=== PATIENT | male | born 1940 | race Caucasian/White ===

== ENCOUNTER 2018-04-25 12:48 | Emergency (ER) | payer OTHER ==
[~2018-04-25] VITALS: Ht 172.7 cm; Wt 76.2 kg
[2018-04-25] MEDS ORDERED: IV NS 0.9% 1,000 ML BAG IV ONE ×2 (13:00→13:30)
[2018-04-25 13:03] LABS: BASOPHILS % (AUTO) 0.1 % (0.0-2.0); EOSINOPHILS % (AUTO) 0.1 % (0.0-6.0); HEMATOCRIT 37 % (39-51); HEMOGLOBIN 12.5 g/dL (13.5-17.5); LYMPHOCYTES # (AUTO) 0.4 /CMM (0.8-4.8); LYMPHOCYTES % (AUTO) 4.7 % (20.0-44.0); MEAN CORPUSCULAR HGB CONC 34 g/dl (31.0-36.0); MEAN CORPUSCULAR VOLUME 101 fL (80-96); MONOCYTES # (AUTO) 0.2 /CMM (0.1-1.30); MONOCYTES % (AUTO) 2.7 % (2.0-12.0); NEUTROPHILS # (AUTO) 8.1 /CMM (1.8-8.9); NEUTROPHILS % (AUTO) 92.4 % (43.0-81.0); PLATELET COUNT (AUTO) 142 /CMM (150-450); RED BLOOD CELL COUNT(AUTO) 3.63 MIL/uL (4.5-6.0); WHITE BLOOD COUNT (AUTO) 8.8 K/uL (4.3-11.0)
--- NOTE | 2018-04-25 13:05 | NUR ---
PT BBRA 87 FROM HOME FOUND SITTING DOWN C/O OF WEAKNESS LIP LAC FROM FALL THIS AM, DENIES LOC OR ANY OTHER INJURY. ALERT AND ORIENTED X 3, VERBALLY RESPONSIVE AND ABLE TO MAKE NEEDS KNOWN. ON ROOM AIR, BREATHING EVENLY AND UNLABORED. DENIES ANY PAIN AT THIS TIME, HOOKED ON THE MONITOR, GOWN. DR. STEPHEN AT BEDSIDE FOR EVAL. KEPT COMFORTABLE, WILL CONTINUE TO MONITOR ACCORDINGLY.
[2018-04-25 13:14] LABS: CALCIUM, SERUM 8.5 mg/dL (8.5-10.1); CARBON DIOXIDE 20 mmol/L (21-32); CHLORIDE 97 mmol/L (98-107); CREATININE 1.5 mg/dL (0.6-1.3); GLUCOSE 144 mg/dL (74-106); POTASSIUM 3.9 mmol/L (3.5-5.1); SODIUM SERUM 131 mmol/L (136-145); UREA NITROGEN, BLOOD 21 mg/dL (7-18)
--- NOTE | 2018-04-25 13:17 | NUR ---
PT GOING TO RADIOLOGY FOR CT SCAN.
[2018-04-25 13:20] LABS: ALANINE AMINOTRANSFERASE 39 U/L (12-78); ALBUMIN 3.3 g/dL (3.4-5.0); ALKALINE PHOSPHATASE 58 U/L (46-116); ASPARTATE AMINOTRANSFERASE 48 U/L (15-37); BILIRUBIN,DIRECT 0.4 mg/dL (0.0-0.2); TOTAL PROTEIN, SERUM 7.6 g/dL (6.4-8.2)
--- NOTE | 2018-04-25 13:22 | NUR ---
CAME BACK FROM X-RAY
[2018-04-25] MEDS ORDERED: CEFEPIME 1 GM in IV D5W 50 ML IV ONE (13:30)
[2018-04-25] MEDS ORDERED: VANCOMYCIN 1 GM in IV D5W 250 ML IV ONE (13:30)
[2018-04-25] MEDS ORDERED: ASPIRIN 81 MG TAB.CHEW PO ONE (13:30)
[2018-04-25 13:39] LABS: LIPASE 78 U/L (73-393)
[2018-04-25] MEDS ORDERED: ASPIRIN 81 MG TAB.CHEW ONE (13:44)
[2018-04-25 13:47] LABS: CREATINE KINASE, TOTAL 913 U/L (39-308)
--- NOTE | 2018-04-25 14:04 | NUR ---
Called [facility] for MD to MD call back.
[2018-04-25 14:46] LABS: APPEARANCE,URINE SL CLOUDY (CLEAR); BILIRUBIN,URINE NEGATIVE (NEGATIVE); BLOOD, URINE 3+ Ery/uL (NEGATIVE); COLOR,URINE YELLOW (YELLOW); KETONES,URINE NEGATIVE (NEGATIVE); LEUKOCYTE ESTERASE ,URINE NEGATIVE (NEGATIVE); NITRITE, URINE NEGATIVE (NEGATIVE); PH,URINE 5.5 (5.0-8.0); PROTEIN,URINE 2+ mg/dl (NEGATIVE); UGLUCOSE NEGATIVE (NEGATIVE); UROBILINOGEN,URINE 0.2 EU/dL (0.2)
[2018-04-25 14:58] LABS: BACTERIA,URINE Rare /HPF (None Seen); SQUAMOUS EPITHELIAL CELL,UR Rare /HPF (None Seen); URINE AMORPHOUS URATE Moderate /HPF (None Seen); WBC,URINE 0-2 /HPF (0-3)
[2018-04-25] MEDS ORDERED: ENOXAPARIN SODIUM 80 MG/0.8 ML DISP.SYRIN SQ ONE ×2 (16:30→16:32)
--- NOTE | 2018-04-25 18:21 | NUR ---
[facility] CALLED PT GOING TO [facility] ROOM CCU 1202 ACCEPTING MD IS DMITRI Sarmiento GIVE REPORT TO [phone] TRANSPORT CCRN WILL BE HERE @ [phone]
--- NOTE | 2018-04-25 18:39 | NUR ---
ATTEMPTED TO GIVE REPORT AT THIS TIME AND RN STATED TOO EARLY TO GIVE REPORT, HRBP TIME IS AT 8PM.
--- NOTE | 2018-04-25 19:14 | NUR ---
ENDORSED TO [facility] FUENTES.
--- NOTE | 2018-04-25 19:15 | NUR ---
RECEIVED REPORT FROM JETT GONZALES FOR FUENTES
--- NOTE | 2018-04-25 20:33 | NUR ---
[facility] ETA CLINICAL PROJECT LEADER UPDATE 8:45 PM.
--- NOTE | 2018-04-25 22:45 | NUR ---
CALLED [facility] MULTIPLE TIMES FOR UPDATE ON [place] CLERK, BUSY LINE
[2018-04-25 22:59] VITALS: BP 128/56
--- NOTE | 2018-04-25 23:48 | NUR ---
PT RESTING COMFORTABLY IN BED. EASILY AROUSABLE. VITAL SIGNS STABLE. MULTIPLE ATTEMPTS TO CALL [facility] FOR UPDATE. BUSY TONE
--- NOTE | 2018-04-26 00:10 | NUR ---
GAVE REPORT TO OMAR MORRISON RN53 FOR TRANSPORTATION AND TO JAZ FROM [place] FOR FUENTES
== END 2018-04-26 00:18 | disposition short-term general hospital (02) ==
LOC: ER 12:51
DX: R65.10 Systemic inflammatory response syndrome (SIRS) of non-infectious origin without acute organ dysfunction (principal); I21.4 Non-ST elevation (NSTEMI) myocardial infarction; S01.511A Laceration without foreign body of lip, initial encounter; R55 Syncope and collapse; E86.0 Dehydration; N28.9 Disorder of kidney and ureter, unspecified; R19.7 Diarrhea, unspecified; E87.2 Acidosis; I24.9 Acute ischemic heart disease, unspecified; Z98.61 Coronary angioplasty status; Z96.659 Presence of unspecified artificial knee joint; Z60.2 Problems related to living alone; W18.39XA Other fall on same level, initial encounter; Y93.89 Activity, other specified; Y92.002 Bathroom of unspecified non-institutional (private) residence as the place of occurrence of the external cause; Y99.8 Other external cause status
CPT/HCPCS: 36415; 70450-TC; 71045-TC; 80048-TC; 80076-TC; 81000-TC; 82550-TC; 82553-TC; 83605-TC; 83690-TC; 84484-TC; 85025-TC; 85730-TC; 87040-TC; 87086-TC; 87400; J0692; J1650; J3370; J7030; J7040; J7060

== ENCOUNTER 2018-07-28 15:17 | Inpatient (IN) | payer OTHER ==
[~2018-07-28] VITALS: Ht 165.1 cm; Wt 68.5 kg
--- NOTE | 2018-07-28 15:30 | NUR ---
PT TO ER BED 6. BIBRA D/T COMPLAINT OF SOB. PT STATES THE HE FEELS WEAK AND COULD GET OUT OF BED EARLIER. COMPLAINT OF ABDOMINAL CRAMPING. PT IS AAOX4. NO ACUTE DISTRESS. AWAITNG MD EVANS. WILL CONTINUE TO MONITOR.
[2018-07-28] MEDS ORDERED: ONDANSETRON HCL/PF 4 MG/2 ML VIAL IVP ONE (16:00)
[2018-07-28] MEDS ORDERED: METRONIDAZOLE 500MG/ NS 100ML 100 ML IV ONE ×2 (16:00→16:04)
[2018-07-28] MEDS ORDERED: PIPERACILLIN /TAZOBACTAM 3.375 G in IV D5W 50 ML IV ONE (16:00)
[2018-07-28] MEDS ORDERED: IV NS 0.9% 1,000 ML BAG IV ONE (16:00)
[2018-07-28] MEDS ORDERED: MORPHINE SULFATE INJ 2 MG/ML DISP.SYRIN IV ONE (16:00)
[2018-07-28] MEDS ORDERED: ONDANSETRON HCL/PF 4 MG/2 ML VIAL ONE (16:04)
--- NOTE | 2018-07-28 16:04 | NUR ---
PT TO RADIOLOGY DEPT VIA [facility]
[2018-07-28] MEDS ORDERED: MORPHINE SULFATE INJ 4 MG/ML DISP.SYRIN ONE (16:05)
--- NOTE | 2018-07-28 16:15 | NUR ---
IV ACCESS OBTAINED ON RFA 20G. LABS DRAWN WITH TECH AT BEDSIDE.
--- NOTE | 2018-07-28 16:15 | NUR ---
PT CAME IN WITH EXISTING IV LINE BY EMS. LFA 20G, PATENT AND INTACT
[2018-07-28 16:30] LABS: BASOPHILS % (AUTO) 0.2 % (0.0-2.0); EOSINOPHILS % (AUTO) 0.1 % (0.0-6.0); HEMATOCRIT 33 % (39-51); HEMOGLOBIN 11.1 g/dL (13.5-17.5); LYMPHOCYTES # (AUTO) 1.1 /CMM (0.8-4.8); LYMPHOCYTES % (AUTO) 13.1 % (20.0-44.0); MEAN CORPUSCULAR HGB CONC 34 g/dl (31.0-36.0); MEAN CORPUSCULAR VOLUME 99 fL (80-96); MONOCYTES # (AUTO) 0.8 /CMM (0.1-1.30); MONOCYTES % (AUTO) 9.6 % (2.0-12.0); NEUTROPHILS # (AUTO) 6.4 /CMM (1.8-8.9); PLATELET COUNT (AUTO) 256 /CMM (150-450); WHITE BLOOD COUNT (AUTO) 8.3 K/uL (4.3-11.0)
[2018-07-28 16:40] LABS: CALCIUM, SERUM 7.8 mg/dL (8.5-10.1); CARBON DIOXIDE 25 mmol/L (21-32); CHLORIDE 94 mmol/L (98-107); CREATININE 1.1 mg/dL (0.6-1.3); GLUCOSE 156 mg/dL (74-106); POTASSIUM 3.6 mmol/L (3.5-5.1); SODIUM SERUM 128 mmol/L (136-145); UREA NITROGEN, BLOOD 17 mg/dL (7-18)
[2018-07-28 16:45] LABS: ALANINE AMINOTRANSFERASE 197 U/L (12-78); ALBUMIN 2.5 g/dL (3.4-5.0); ALKALINE PHOSPHATASE 100 U/L (46-116); ASPARTATE AMINOTRANSFERASE 175 U/L (15-37); BILIRUBIN,DIRECT 0.4 mg/dL (0.0-0.2); TOTAL PROTEIN, SERUM 7.1 g/dL (6.4-8.2)
[2018-07-28] MEDS ORDERED: MELA5TAB PO (17:13)
[2018-07-28] MEDS ORDERED: CARV6.252 PO (17:13)
[2018-07-28] MEDS ORDERED: ATOR40TA PO (17:13)
[2018-07-28] MEDS ORDERED: LOSA25TA27 PO (17:13)
[2018-07-28] MEDS ORDERED: LEVO75TA7 PO (17:13)
[2018-07-28] MEDS ORDERED: NITR0.4T48 SL (17:13)
[2018-07-28] MEDS ORDERED: CLOP75TA15 PO (17:13)
[2018-07-28] MEDS ORDERED: ONDA4TAB5 PO (17:13)
[2018-07-28] MEDS ORDERED: ASPI-1152 PO (17:13)
[2018-07-28] MEDS ORDERED: ACID1TAB12 PO (17:13)
[2018-07-28] MEDS ORDERED: MIRT15TA7 PO (17:13)
[2018-07-28] MEDS ORDERED: ASPIRIN 81 MG TAB.CHEW ONE ×2 (17:24→17:28)
[2018-07-28] MEDS ORDERED: ASPIRIN 81 MG TAB.CHEW PO ONE (17:30)
--- NOTE | 2018-07-28 17:44 | NUR ---
[facility] CALLED,SPOKE WITH GUZMAN GONZALES,WILL HAVE TRACEE OZUNA GIVE US A CALL BACK
[2018-07-28] MEDS ORDERED: MAG HYDROX/AL HYDROX/SIMETH 30 ML UDC PO PRN (19:30)
[2018-07-28] MEDS ORDERED: ACETAMINOPHEN 325 MG TABLET PO PRN (19:30)
[2018-07-28] MEDS ORDERED: ONDANSETRON HCL/PF 4 MG/2 ML VIAL IVP PRN (19:30)
[2018-07-28] MEDS ORDERED: ZOLPIDEM TARTRATE 5 MG TABLET PO PRN (19:30)
[2018-07-28] MEDS ORDERED: Z GUARD REMEDY 2 OZ OINT TP PRN (19:30)
[2018-07-28] MEDS ORDERED: MAGNESIUM HYDROXIDE 30 ML UDC PO PRN (19:30)
[2018-07-28] MEDS ORDERED: MORPHINE SULFATE INJ 2 MG/ML DISP.SYRIN IV PRN (19:30)
[2018-07-28] MEDS ORDERED: ASPIRIN 325 MG TABLET PO ONE (19:53)
--- NOTE | 2018-07-28 20:11 | NUR ---
REPORT GIVEN TO JANET NAJERA.
[2018-07-28 20:25] LABS: B-TYPE NATRIURETIC PEPTIDE 17372 PG/ML (0-125)
[2018-07-28] MEDS ORDERED: ENOXAPARIN SODIUM 40 MG/0.4 ML DISP.SYRIN SQ SCH (21:00)
--- NOTE | 2018-07-28 21:15 | NUR ---
RN MS ADMITTING NOTES RECEIVED PT FROM ER VIA [facility] BECKER ALERT ORIENTED X4, SITTING IN BED, BREATHING EVEN AND UNLABORED ON 2L O2 NC, NO COUGH OR CONGESTION AT THIS TIME, NO COMPLAIN OF PAIN OR DISCOMFORT. HEART MONITOR IN PLACE. IV ACCESS ON THE L FA 20G PATENT AND FLUSHING. ORIENTED TO UNIT PROTOCOL AND CALL LIGHT, BED IN LOWEST LOCKED POSITION, WILL CONTINUE TO MONITOR FREQUENTLY
[2018-07-28] MEDS ORDERED: PIPERACILLIN /TAZOBACTAM 3.375 G VIAL IV ONE (22:33)
[2018-07-28] MEDS: PIPERACILLIN /TAZOBACTAM 3.375 G in IV D5W 100 ML IV SCH (22:35)
[2018-07-28 23:38] VITALS: BP 102/54
--- NOTE | 2018-07-29 00:29 | NUR ---
TROPONIN RESULTS OF 2.769, DR BARNES AWARE, ORDERED 1MG/KG Q12HR FIRST DOSE TO START NOW. PREVIOUSLY ADMINISTERED 40MG @2100, WILL ADMINISTER ADDITIONAL 30MG NOW AND START 70MG DOSE IN AM
[2018-07-29] MEDS ORDERED: ENOXAPARIN SODIUM 30 MG/0.3 ML DISP.SYRIN SQ SCH (00:30)
[2018-07-29 04:35] VITALS: BP 130/64
[2018-07-29] MEDS ORDERED: PIPERACILLIN /TAZOBACTAM 3.375 G VIAL IV ONE (05:20)
[2018-07-29] MEDS: PIPERACILLIN /TAZOBACTAM 3.375 G in IV D5W 100 ML IV SCH ×2 (05:29→14:10)
--- NOTE | 2018-07-29 06:15 | NUR ---
MULTI PURPOSE MACHINE OPERATOR CLOSING NOTES PT REMAINS IN BED, ALERT ORIENTED X4, BREATHING EVEN AND UNLABORED ON 2L O2 NC, NO COUGH OR CONGESTION AT THIS TIME, NO COMPLAIN OF PAIN OR DISCOMFORT. HEART MONITOR IN PLACE. IV ACCESS ON THE L FA 20G PATENT AND FLUSHING. BED IN LOWEST LOCKED POSITION, CALL LIGHT WITHIN REACH AT ALL TIMES, WILL ENDORSE TO DAY SHIFT FOR FUENTES
[2018-07-29 07:04] LABS: BASOPHILS % (AUTO) 0.3 % (0.0-2.0); EOSINOPHILS % (AUTO) 0.1 % (0.0-6.0); HEMATOCRIT 32 % (39-51); LYMPHOCYTES # (AUTO) 1.6 /CMM (0.8-4.8); LYMPHOCYTES % (AUTO) 23.4 % (20.0-44.0); MEAN CORPUSCULAR HGB CONC 35 g/dl (31.0-36.0); MEAN CORPUSCULAR VOLUME 99 fL (80-96); MONOCYTES # (AUTO) 0.7 /CMM (0.1-1.30); MONOCYTES % (AUTO) 10.2 % (2.0-12.0); NEUTROPHILS # (AUTO) 4.5 /CMM (1.8-8.9); PLATELET COUNT (AUTO) 251 /CMM (150-450); WHITE BLOOD COUNT (AUTO) 6.8 K/uL (4.3-11.0)
[2018-07-29 07:29] LABS: ALANINE AMINOTRANSFERASE 151 U/L (12-78); ALBUMIN 2.3 g/dL (3.4-5.0); ALKALINE PHOSPHATASE 79 U/L (46-116); ASPARTATE AMINOTRANSFERASE 115 U/L (15-37); CALCIUM, SERUM 8.2 mg/dL (8.5-10.1); CARBON DIOXIDE 24 mmol/L (21-32); CHLORIDE 98 mmol/L (98-107); CREATININE 0.9 mg/dL (0.6-1.3); GLUCOSE 100 mg/dL (74-106); MAGNESIUM 2.2 mg/dL (1.8-2.4); PHOSPHORUS 3.6 mg/dL (2.5-4.9); POTASSIUM 3.5 mmol/L (3.5-5.1); SODIUM SERUM 133 mmol/L (136-145); TOTAL PROTEIN, SERUM 6.7 g/dL (6.4-8.2); UREA NITROGEN, BLOOD 15 mg/dL (7-18)
[2018-07-29] MEDS ORDERED: LEVOTHYROXINE SODIUM 75 MCG TABLET PO SCH (07:30)
[2018-07-29] MEDS ORDERED: ATORVASTATIN 40 MG TABLET PO SCH (07:30)
[2018-07-29] MEDS ORDERED: PANTOPRAZOLE 40 MG TABLET.DR PO SCH (07:30)
[2018-07-29] MEDS ORDERED: NITROGLYCERIN 0.4 MG/TAB BOTTLE SL PRN (07:30)
[2018-07-29 07:46] LABS: CHOLESTEROL 60 mg/dL (<200); HDL CHOLESTEROL 24 mg/dL (40-60); LDL 35 mg/dL (0-99); TRIGLYCERIDES 40 mg/dL (30-150)
[2018-07-29 08:00] VITALS: BP 136/61
[2018-07-29 08:59] VITALS: BP 136/61
[2018-07-29] MEDS: FUROSEMIDE 40 MG/4 ML VIAL IV SCH ×2 (08:59→11:57)
[2018-07-29] MEDS ORDERED: CARVEDILOL 6.25 MG TABLET PO SCH (09:00)
[2018-07-29] MEDS ORDERED: ENOXAPARIN SODIUM 80 MG/0.8 ML DISP.SYRIN SQ SCH (09:00)
[2018-07-29] MEDS ORDERED: ASPIRIN EC 81 MG TABLET.DR PO SCH (09:00)
[2018-07-29] MEDS ORDERED: CLOPIDOGREL BISULFATE 75 MG TABLET PO SCH (09:00)
[2018-07-29] MEDS ORDERED: ACIDOPHILUS/BULGARICUS 1 EACH TAB.CHEW PO SCH (09:00)
[2018-07-29 09:18] LABS: THYROID STIMULATING HORMONE 4.306 uIU/mL (0.358-3.74)
--- NOTE | 2018-07-29 10:00 | NUR ---
STOOL SAMPLE (C-DIF) SENT TO LAB.
[2018-07-29 10:24] LABS: BILIRUBIN,URINE NEGATIVE (NEGATIVE); BLOOD, URINE TRACE-INTA Ery/uL (NEGATIVE); COLOR,URINE YELLOW (YELLOW); KETONES,URINE TRACE (NEGATIVE); LEUKOCYTE ESTERASE ,URINE NEGATIVE (NEGATIVE); NITRITE, URINE NEGATIVE (NEGATIVE); PH,URINE 5.5 (5.0-8.0); PROTEIN,URINE TRACE mg/dl (NEGATIVE); UGLUCOSE NEGATIVE (NEGATIVE)
[2018-07-29 10:44] LABS: APPEARANCE,URINE SLIGHTLY CLOUDY (CLEAR)
[2018-07-29 10:48] LABS: BACTERIA,URINE Few /HPF (None Seen); RBC,URINE 0-2 /HPF (0-2); SQUAMOUS EPITHELIAL CELL,UR Few /HPF (None Seen); WBC,URINE 0-2 /HPF (0-3)
[2018-07-29 10:49] LABS: URIC ACID CRYSTALS,URINE Few /HPF (None Seen)
--- NOTE | 2018-07-29 10:53 | NUR ---
patients troponin up , 2.948. Dr Tiwari notified and she will contact with Dr. Ortega
[2018-07-29] MEDS ORDERED: PANT40TA2 PO (11:08)
[2018-07-29] MEDS ORDERED: ENOX80DI SQ (11:08)
[2018-07-29] MEDS ORDERED: FURO10VI IV (11:08)
[2018-07-29] MEDS ORDERED: PIPE3.379 IV (11:08)
[2018-07-29] MEDS ORDERED: ALLA266C2 TP (11:08)
[2018-07-29] MEDS ORDERED: VANC1VIA XX (11:08)
[2018-07-29] MEDS ORDERED: ACET325T53 PO (11:08)
[2018-07-29] MEDS ORDERED: Morphine Sulfate Inj IV (11:08)
--- NOTE | 2018-07-29 12:00 | NUR ---
PATIENT NEEDS HIGHER LEVEL OF CARE AND WILL BE TRANSFERRED TO [facility].
--- NOTE | 2018-07-29 16:00 | NUR ---
REPORT CALLED TO JANET BARAHONA FROM [facility]. PATIENT ADM TO ROOM [id number].
--- NOTE | 2018-07-29 17:00 | NUR ---
PATIENT PICKED UP BY AMBULANCE FOR TRANSFER TO [place]. PATIENT A/O X4 . ON ROOM AIR SATURATING WELL, VS ARE STABLE AND WITHIN NORMAL RANGE. PATIENT DENIES CHEST PAIN, SOB AND NOT IN ANY DISTRESS. NURSE FROM [place] ASKED NOT TO REMOVE IV ASSESS. IV LINE INTACT AND PATENT, FLUSHING WELL. SKIN INTACT.D/C INSTRUCTIONS PROVIDED, PATIENT SIGHED ALL PAPERS INCLUDING VALUABLE FORM. ALL PAPERWORK REQUESTED BY [place] [facility] PROVIDED AND SENT WITH THE PATIENT. ID BAND REMOVED.
[2018-07-29] MEDS ORDERED: LOSARTAN POTASSIUM 25 MG TABLET PO SCH (18:00)
[2018-07-29] MEDS ORDERED: MIRTAZAPINE 15 MG TABLET PO SCH (22:00)
== END 2018-07-29 18:19 | DRG 280 ==
LOC: ER 15:23 → TELE 19:44
PROVIDERS: ADMIT Student in an Organized Health Care Education/Training Program; ATTEND Student in an Organized Health Care Education/Training Program
DX: I21.4 Non-ST elevation (NSTEMI) myocardial infarction (principal); I81 Portal vein thrombosis; I50.23 Acute on chronic systolic (congestive) heart failure; K57.32 Diverticulitis of large intestine without perforation or abscess without bleeding; E87.1 Hypo-osmolality and hyponatremia; C18.7 Malignant neoplasm of sigmoid colon; K59.00 Constipation, unspecified; K74.60 Unspecified cirrhosis of liver; I11.0 Hypertensive heart disease with heart failure; Z95.5 Presence of coronary angioplasty implant and graft; Z96.659 Presence of unspecified artificial knee joint; Z79.82 Long term (current) use of aspirin; Z79.02 Long term (current) use of antithrombotics/antiplatelets; I70.0 Atherosclerosis of aorta; I35.1 Nonrheumatic aortic (valve) insufficiency; I25.10 Atherosclerotic heart disease of native coronary artery without angina pectoris; D53.9 Nutritional anemia, unspecified; E61.1 Iron deficiency; E03.9 Hypothyroidism, unspecified
CPT/HCPCS: 36415; 71045-TC; 80048-TC; 80053-TC; 80061-TC; 80076-TC; 81000-TC; 82728-TC; 83540-TC; 83605-TC; 83735-TC; 83880; 84100-TC; 84439-TC; 84443-TC; 84484-TC; 85025-TC; 87040-TC; 87081-TC; 87086-TC; 93307-TC; G0378; J1650; J1940; J2270; J2405; J2543; J3490; J7030; J7050; J7060

== ENCOUNTER 2018-10-06 22:52 | Emergency (ER) | payer OTHER ==
[~2018-10-06] VITALS: Ht 175.3 cm; Wt 81.6 kg
[~2018-10-06 22:52] MED LIST: ACET325T53 PO; ACID1TAB12 PO; ALLA266C2 TP; ASPI-1152 PO; ATOR40TA PO; CARV6.252 PO; CLOP75TA15 PO; ENOX80DI SQ; FURO10VI IV; LEVO75TA7 PO; LOSA25TA27 PO; MELA5TAB PO; MIRT15TA7 PO; Morphine Sulfate Inj IV; NITR0.4T48 SL; ONDA4TAB5 PO; PANT40TA2 PO; PIPE3.379 IV; VANC1VIA XX
--- NOTE | 2018-10-06 23:07 | NUR ---
ROLAND FROM HOME. AAOX1. LETHARGIC. BREATHING EVEN AND UNLABORED. NEPHEW AT BEDSIDE. BROUGHT D/T FAMILY CONCERN THAT PT HAS BEEN LETHARGIC. C/O LOWER ABDOMINAL PAIN AND INCREASED BILAT LOWER EXTREMETIES EDEMA. NEPHEW REPORTS PT ON LASIX AND PERCOCET. TO ER BED 9. AWAITING MD FOR NATHAN
--- NOTE | 2018-10-06 23:32 | NUR ---
MANAGER MULTIMEDIA AT BEDSIDE FOR BLOOD DRAW
[2018-10-06 23:42] LABS: BASOPHILS % (AUTO) 0.4 % (0.0-2.0); HEMATOCRIT 30 % (39-51); HEMOGLOBIN 10.3 g/dL (13.5-17.5); LYMPHOCYTES # (AUTO) 1.4 /CMM (0.8-4.8); LYMPHOCYTES % (AUTO) 24.1 % (20.0-44.0); MEAN CORPUSCULAR HGB CONC 34 g/dl (31.0-36.0); MEAN CORPUSCULAR VOLUME 97 fL (80-96); MONOCYTES # (AUTO) 0.4 /CMM (0.1-1.30); MONOCYTES % (AUTO) 7.6 % (2.0-12.0); NEUTROPHILS # (AUTO) 3.9 /CMM (1.8-8.9); NEUTROPHILS % (AUTO) 67.9 % (43.0-81.0); PLATELET COUNT (AUTO) 273 /CMM (150-450); RED BLOOD CELL COUNT(AUTO) 3.09 MIL/uL (4.5-6.0); WHITE BLOOD COUNT (AUTO) 5.7 K/uL (4.3-11.0)
[2018-10-06 23:59] LABS: ALANINE AMINOTRANSFERASE 63 U/L (12-78); ALBUMIN 2.2 g/dL (3.4-5.0); ALKALINE PHOSPHATASE 76 U/L (46-116); ASPARTATE AMINOTRANSFERASE 45 U/L (15-37); BILIRUBIN,DIRECT 0.3 mg/dL (0.0-0.2); BILIRUBIN,TOTAL 0.9 mg/dL (0.2-1.0); CARBON DIOXIDE 23 mmol/L (21-32); CHLORIDE 88 mmol/L (98-107); CREATININE 1.2 mg/dL (0.6-1.3); GLUCOSE 148 mg/dL (74-106); LIPASE 66 U/L (73-393); UREA NITROGEN, BLOOD 28 mg/dL (7-18)
[2018-10-07 00:03] LABS: SODIUM SERUM 120 mmol/L (136-145)
[2018-10-07] MEDS ORDERED: CT SWABBABLE VALVE TRANS SET 1 EA INFUS.SET MC ONE (00:09)
[2018-10-07] MEDS ORDERED: IOHEXOL-300 100 ML VIAL IV ONE ×2 (00:09→00:27)
[2018-10-07] MEDS ORDERED: IV NS 0.9% 250 ML IV ONE (00:09)
--- NOTE | 2018-10-07 00:11 | NUR ---
PT BEING WHEELED TO CT ON [facility]
--- NOTE | 2018-10-07 00:12 | NUR ---
[facility] ([facility]) - [phone] CALL FOR AY UPDATES.
[2018-10-07] MEDS ORDERED: FUROSEMIDE 40 MG/4 ML VIAL IV ONE (00:30)
[2018-10-07] MEDS ORDERED: FUROSEMIDE 40 MG/4 ML VIAL ONE (00:57)
[2018-10-07] MEDS ORDERED: ASPIRIN 81 MG TAB.CHEW PO ONE (01:30)
[2018-10-07] MEDS ORDERED: ASPIRIN 81 MG TAB.CHEW ONE (02:11)
[2018-10-07] MEDS ORDERED: IV NS 0.9% 1,000 ML BAG IV ONE (03:00)
--- NOTE | 2018-10-07 05:27 | NUR ---
Pt accepted to [facility] by Dr May. # for report [phone]. ETA [id number]
--- NOTE | 2018-10-07 05:47 | NUR ---
REPORT GIVEN TO JANET AYALA OF [facility] FOR FUENTES. ETA P/U @ [id number]
[2018-10-07 06:15] VITALS: BP 107/58
== END 2018-10-07 06:35 | disposition short-term general hospital (02) ==
LOC: ER 22:53
DX: I11.0 Hypertensive heart disease with heart failure (principal); I50.9 Heart failure, unspecified; R79.89 Other specified abnormal findings of blood chemistry; R60.0 Localized edema; E87.1 Hypo-osmolality and hyponatremia; E03.9 Hypothyroidism, unspecified; Z96.659 Presence of unspecified artificial knee joint; Z60.2 Problems related to living alone; Z79.82 Long term (current) use of aspirin
CPT/HCPCS: 36415 ×2; 71046; 74177; 80048; 80076; 83690; 83880; 84484 ×2; 85025; 93005; 96374; 99285; J1940; J7030; J7050; Q9967 ×2